=== PATIENT | male | born 1965 | race Caucasian/White ===

== ENCOUNTER 2017-08-16 11:00 | Inpatient (IN) | payer OTHER ==
[~2017-08-16] VITALS: Ht 172.7 cm; Wt 93.2 kg
--- NOTE | 2017-08-16 11:30 | NUR ---
DR LARES AT BEDSIDE FOR MSE
--- NOTE | 2017-08-16 11:36 | NUR ---
CARE TRANSITIONS MANAGER AT BEDSIDE FOR BLOOD DRAW
--- NOTE | 2017-08-16 11:41 | NUR ---
TONE RIVERA AT BEDSIDE FOR EKG
--- NOTE | 2017-08-16 12:09 | NUR ---
MEDICATION ADMINISTERED SLOW IVP PER MD ORDER. PT VERBALIZES UNDERSTANDING OF MEDS PRIOR TO ADMINISTRATION.
[2017-08-16 12:14] LABS: CALCIUM 8.5 mg/dL (8.5-10.1); CHLORIDE SERUM 107 mmol/L (98-107); CREATININE SERUM 1.1 mg/dL (0.7-1.3); GFR1 > 60 mL/min; GLUCOSE SERUM 103 mg/dL (74-106); POTASSIUM SERUM 3.7 mmol/L (3.5-5.1); SODIUM SERUM 142 mmol/L (136-145)
[2017-08-16 12:25] LABS: ALBUMIN 3.4 g/dL (3.4-5.0); ALKALINE PHOSPHATASE 74 U/L (46-116); ALT/SGPT 48 U/L (16-63); AST/SGOT 19 U/L (15-37); BILIRUBIN TOTAL 0.44 mg/dL (0.20-1.00); TOTAL PROTEIN, SERUM 7.6 g/dL (6.4-8.2)
[2017-08-16 12:57] LABS: CK-MB 1.1 ng/mL (0-3.6)
[2017-08-16 13:16] LABS: BASOPHIL % 0.3 % (0-2); PLATELET COUNT 189 x10^3mcL (130-400); RED CELL DISTRIBUTION WIDTH 13.5 % (11.5-14.5)
--- NOTE | 2017-08-16 13:25 | NUR ---
PT MEDICATED WITH ZOSYN PER MD ORDER, PT VERBALIZED UNDERSTANDING PRIOR TO ADMINISTRATION.
--- NOTE | 2017-08-16 14:18 | NUR ---
REPORT CALLED TO RECIEVING NURSE SELF ON TELE.
[2017-08-16 14:19] LABS: MAGNESIUM 2.1 mg/dL (1.8-2.4)
[2017-08-16 14:27] LABS: T3 TOTAL 1.09 ng/mL
[2017-08-16 14:29] LABS: FREE T4 0.98 ng/dL (0.76-1.46); T4(THYROXINE) 8.7 ug/dL (4.7-13.3)
--- NOTE | 2017-08-16 14:42 | NUR ---
REDENNED AREA MARKED WITH SKIN MARKER, DR. JORDAN AT BEDSIDE SPEAKING TO PT AND .
[2017-08-16 14:43] VITALS: BP 186/93
--- NOTE | 2017-08-16 14:46 | NUR ---
RECEIVED PT FROM ED VIA SUGEY. ORIENTED PT TO ROOM AND SURROUNDINGS. IV NOTED TO LAC PATENT AND INTACT .TELE 4 PLACED ON PT READING NSR. INSTRUCTED PT ON THE USE OF CALL LIGHT FOR ASSISTANCE. ENDORSED PT TO PRIMARY NURSE ARAMIS
--- NOTE | 2017-08-16 16:22 | NUR ---
PT DENIES SOB, STATES PAIN TOLERABLE, CALL LIGHT WITHIN REACH, US IN PROGRESS, WILL CONTINUE TO MONITOR.
[2017-08-16 16:24] VITALS: BP 168/91
--- NOTE | 2017-08-16 17:19 | NUR ---
PT DENIES SOB, DENIES PAIN, FAMILY AT BEDISDE, CALL LIGHT WITHIN REACH, WILL CONTINUE TO MONITOR.
--- NOTE | 2017-08-16 18:08 | NUR ---
PT DENIES SOB, DENIES PAIN, VISITORS AT BEDSIDE, CALL LIGHT WITHIN REACH, WILL ENDORSE PT TO NEXT SHIFT.
--- NOTE | 2017-08-16 20:03 | NUR ---
PT SEEN, RESTING IN BED, ALERT AND ORIENTED, DENIES HEADACHE OR DIZZINESS, MOSTLY WOLOF SPEAKING, BREATHING EVEN AND UNLABORED, NO SOB, LUNG SOUNDS CLEAR, ON ROOM AIR WITH NO RESP DISTRESS NOTED, ON TELE#4 NSR, DENIES CHEST PAIN, IVF INFUSING WELL, PULSES PALPABLE, EDEMA AND REDNESS NOTED TO LLE, ABD SOFT AND FLAT WITH ACTIVE BS, NO BM AT THIS TIME, DENIES ABD PAIN, VOIDING FREELY, NO DISTRESS NOTED, WILL KEEP TO MONITOR.
[2017-08-16 20:50] VITALS: BP 162/88
[2017-08-16 22:44] LABS: microscopic required? YES; urine erythrocyte TRACE (NEGATIVE)
[2017-08-17] VITALS (11 sets, daily range): BP systolic 104–193; BP diastolic 73–107; Ht 172.7 cm; Wt 93.2 kg
--- NOTE | 2017-08-17 05:45 | NUR ---
PT AWAKE AND RESTING IN BED, SLEPT MOST OF NIGHT, MORNING BLOOD SUGAR-115 MG/DL WITH NO RISS, IVF INFUSING WELL, LLE STILL WITH SWELLING AND REDNESS, NO PAIN AT THIS TIME, NO DISTRESS NOTED, WILL KEEP TO MONITOR.
[2017-08-17 06:08] LABS: BASOPHIL % 0.3 % (0-2); PLATELET COUNT 223 x10^3mcL (130-400); RED CELL DISTRIBUTION WIDTH 13.3 % (11.5-14.5)
[2017-08-17 06:37] LABS: CALCIUM 8.2 mg/dL (8.5-10.1); CHLORIDE SERUM 107 mmol/L (98-107); CREATININE SERUM 1.2 mg/dL (0.7-1.3); GFR1 > 60 mL/min; GLUCOSE SERUM 118 mg/dL (74-106); POTASSIUM SERUM 3.5 mmol/L (3.5-5.1); SODIUM SERUM 140 mmol/L (136-145)
--- NOTE | 2017-08-17 07:05 | NUR ---
BEDSIDE REPORT RECEIVED FROM [facility] SHIFT NURSE AT THIS TIME. PATIENT AWAKE, ALERT, NO SIGNS OF DISTRESS NOTED. ALL SAFETY MEASURES IN PLACE, WILL CONTINUE TO MONITOR.
--- NOTE | 2017-08-17 07:22 | NUR ---
PATIENT AWAKE, ALERT, ORIENTED X4, NO SIGNS OF DISTRESS NOTED, WATCHING TV. DENIES CHEST PAIN, NO DIZZINESS, TELE# 4, HR 65. ON ROOM AIR, NS INFUSING TO LAC AT 50 ML/HR, NO REDNESS NOR INFILTRATION NOTED TO SITE. REDNESS TO LLE IMPROVED SINCE ADMISSION PER PATIENT, SWELLING HAS IMPROVED AND GONE DOWN, OUTLINE SHOWS IMPROVEMENT. CALM AND COOPERATIVE WITH CARE, ALL SAFETY MEASURES IN PLACE, WILL CONTINUE TO MONITOR.
--- NOTE | 2017-08-17 08:24 | NUR ---
DR LEWIS AT BEDSIDE, IS TO PLACE COMPRESSION DRESSING ON LLE. PATIENT AWAKE, PAIN 6/10 TO LLE AFTER AMBULATING, MEDICATED PRN (SEE EMAR). ALL SAFETY MEASURES IN PLACE, WILL CONTINUE TO MONITOR.
--- NOTE | 2017-08-17 08:24 | NUR ---
PODIATRY AT BEDSIDE, PATIENT AWAKE, PAIN 6/10 TO LLE AFTER AMBULATING, MEDICATED PRN (SEE EMAR). ALL SAFETY MEASURES IN PLACE, WILL CONTINUE TO MONITOR.
--- NOTE | 2017-08-17 09:16 | NUR ---
ROUNDS MADE AT THIS TIME WITH MD TEAM, CHARGE NURSE NATHANIEL, AND DR PANTOJA. PATIENT AWAKE, ALERT, COMPRESSION DRESSING TO LLE CLEAN AND DRY. ALL QUESTIONS AND CONCERNS ADDRESSED, WILL CONTINUE TO MONITOR.
--- NOTE | 2017-08-17 11:44 | NUR ---
PATIENT AWAKE, ALERT, SITTING UP IN BED, NO SIGNS OF DISTRESS NOTED. AT BEDSIDE, ALL NEEDS ATTENDED TO, WILL CONTINUE TO MONITOR.
--- NOTE | 2017-08-17 13:21 | NUR ---
PATIENT AWAKE, ALERT, SITTING UP IN BED, AT BEDSIDE. ALL NEEDS ATTENDED TO, ALL SAFETY MEASURES IN PLACE, WILL CONTINUE TO MONITOR.
--- NOTE | 2017-08-17 16:00 | NUR ---
SPOKE WITH DR ESCAMILLA AT THIS TIME REGARDING BP 174/101, STATED TO GIVE HYDRALAZINE AND AMLODIPINE ONCE (SEE EMAR). WILL RECHECK BP 1 HR AFTER AND UPDATE .
--- NOTE | 2017-08-17 17:59 | NUR ---
PATIENT AWAKE, ALERT, FAMILY AT BEDSIDE, NO SIGNS OF DISTRESS NOTED. ALL SAFETY MEASURES IN PLACE, WILL CONTINUE TO MONITOR.
--- NOTE | 2017-08-17 19:15 | NUR ---
BEDSIDE REPORT GIVEN TO TIFFANY LANDA AT THIS TIME. PATIENT AWAKE, ALERT, SITTING UP IN CHAIR, FAMILY AT BEDSIDE. WILL ENDORSE CARE.
--- NOTE | 2017-08-17 20:00 | NUR ---
RECEIVED PT IN BED AWAKE ALERT AND ORIENTED. FAMILY AT THE BEDSIDE. PT IS ALERT AND ORIENTED. SPAINISH SPEAKING. PT HAS NO C/O PAIN NOTED. NO ACUTE DISTRESS, RESPIRATIONS EVEN AND UNLABORED. IV INTACT. NO INFILTRATION NOTED. SEE DEHAIRING MACHINE TENDER FOR FURTHER DETAILS. PT IS STABLE AT THIS TIME. MADE PT AWARE TO USE CALL LIGHT IF NEEDS ASSISTANCE WITH ANYTHING. CALL LIGHT IN REACH. WILL CONTINUE TO MONITOR.
--- NOTE | 2017-08-18 01:00 | NUR ---
PT SLEEPING AT THIS TIME, NO DISTRESS NOTED. RESPIRATIONS EVEN AND UNLABORED. IV INFUSING WELL WITH NO INFILTRATION NOTED. CALL LIGHT IN REACH. WILL MONITOR.
--- NOTE | 2017-08-18 03:47 | NUR ---
NO CHANGES NOTED AT THIS TIME, PT SLEEPING WITH NO DISTRESS. WILL MONITOR.
[2017-08-18 05:30] VITALS: BP 155/90
--- NOTE | 2017-08-18 05:45 | NUR ---
NO DISTRESS NOTED. PT RESTING COMFORTABLY. IV INFUSING WELL WITH NO INFILTRATION NOTED. NO COMPLAINTS AT THIS TIME. PT IS STABLE AT THIS TIME, WILL ENDORSE TO THE A.M SHIFT NURSE.
[2017-08-18 06:10] LABS: BASOPHIL % 0.5 % (0-2); PLATELET COUNT 248 x10^3mcL (130-400); RED CELL DISTRIBUTION WIDTH 13.5 % (11.5-14.5)
--- NOTE | 2017-08-18 07:15 | NUR ---
BEDSIDE REPORT RECEIVED FROM [facility] SHIFT NURSE AT THIS TIME. PATIENT AWAKE, ALERT, NO SIGNS OF DISTRESS NOTED. WILL CONTINUE TO MONITOR.
[2017-08-18 07:26] VITALS: BP 164/94
--- NOTE | 2017-08-18 07:26 | NUR ---
PATIENT AWAKE, ALERT, NO SIGNS OF DISTRESS NOTED. DENIES CHEST PAIN, NO DIZZINESS, TELE# 4, HR 74. ON ROOM AIR, NS INFUSING TO LAC AT 50 ML/HR, NO REDNESS NOR INFILTRATION NOTED TO SITE. COMPRESSION DRESSING TO LLE CLEAN AND DRY. CALM AND COOPERATIVE WITH CARE, ALL SAFETY MEASURES IN PLACE, WILL CONTINUE TO MONITOR.
--- NOTE | 2017-08-18 08:41 | NUR ---
ROUNDS MADE AT THIS TIME WITH MD TEAM, CHARGE NURSE NATHANIEL, AND DR PANTOJA. PATIENT AWAKE, ALERT, NO SIGNS OF DISTRESS NOTED. PODIATRY TO FOLLOW UP WITH PATIENT TODAY, REPEAT CBC AT NOON, POSSIBLE DC TODAY, DR ESCAMILLA MADE AWARE OF WBC 12.8. WILL CONTINUE TO MONITOR.
[2017-08-18 09:51] VITALS: BP 150/92
--- NOTE | 2017-08-18 12:00 | NUR ---
PATIENT AWAKE, ALERT, NO SIGNS OF DISTRESS NOTED. AT BEDSIDE, ALL NEEDS ATTENDED TO, ALL SAFETY MEASURES IN PLACE, WILL CONTINUE TO MONITOR.
[2017-08-18 12:54] LABS: PLATELET COUNT 286 x10^3mcL (130-400); RED CELL DISTRIBUTION WIDTH 13.4 % (11.5-14.5)
--- NOTE | 2017-08-18 13:24 | NUR ---
PAGE GATE SENT TO DR ESCAMILLA AT THIS TIME REGARDING WBC 12.7. PATIENT AWAKE, ALERT, NO SIGNS OF DISTRESS NOTED, WILL CONTINUE TO MONITOR.
[2017-08-18 13:29] VITALS: BP 137/86
[2017-08-18] MEDS ORDERED: ZES20 PO (13:46)
[2017-08-18] MEDS ORDERED: METOPROLOL TART25 M1 PO (13:47)
[2017-08-18] MEDS ORDERED: NOR10 PO (13:47)
[2017-08-18] MEDS ORDERED: LAC PO (13:48)
[2017-08-18] MEDS ORDERED: GLU500 PO (13:48)
[2017-08-18] MEDS ORDERED: CEPHALEXIN500 MG PO (13:50)
[2017-08-18 15:01] VITALS: BP 137/86
--- NOTE | 2017-08-18 15:20 | NUR ---
DISCHARGE TEACHING PROVIDED TO PATIENT AND SON AT THIS TIME. IV DC'D, TELE RETURNED TO CASTING CLEANER AT THIS TIME. WILL NOTIFY NURSE AID.
--- NOTE | 2017-08-18 15:35 | NUR ---
PATIENT TAKEN DOWNSTAIRS AT THIS TIME VIA WHEELCHAIR TO DISCHARGE OFFICE. CIVIL DRAFTER/TECHNICAL SUPPORT REPRESENTATIVE MADE AWARE.
== END 2017-08-18 15:35 | disposition home or self-care (01) | DRG 603 ==
LOC: ED 11:00 → DU 13:28
PROVIDERS: Emergency Medicine; Family Medicine; ADMIT Family Medicine
DX: L03.115 Cellulitis of right lower limb (principal); D68.69 Other thrombophilia; E11.65 Type 2 diabetes mellitus with hyperglycemia; I16.0 Hypertensive urgency; E78.5 Hyperlipidemia, unspecified; Z68.31 Body mass index [BMI] 31.0-31.9, adult; I10 Essential (primary) hypertension; R31.9 Hematuria, unspecified
CPT/HCPCS: 83880; 84439; 90658; 94150; J0360; J1644; J2543; J3490; J7030; Q0092